=== PATIENT | female | born 1985 | race Hispanic/Latino ===

== ENCOUNTER 2022-11-16 13:37 | Observation (INO) | payer BC ==
[2022-11-16 14:22] LABS: #Eosinphils 0.1 thou/uL (0.0-0.7); #Lymphocytes 2.3 thou/uL (1.20-3.40); #Monocytes 0.8 thou/uL (0.11-0.59); #Neutrophils 7.1 thou/uL (1.40-6.50); %Basophils 0.5 % (0.0-1.0); %Eosinophils 0.6 % (0.0-10.0); %Lymphocytes 22.3 % (21.0-51.0); %Monocytes 7.8 % (0.0-10.0); %Neutrophils 68.9 % (42.0-75.0); Hemoglobin 11.8 g/dL (12.0-16.0); Mean Corpuscular HGB CONC 32.9 g/dL (32.0-36.0); Mean Corpuscular Hemoglobin 31.5 pg (27.0-31.0); Mean Corpuscular Volume 95.8 fl (78.0-98.0); Mean Platelet Volume 8.4 fL (7.4-10.4); Platelet Count 237 10x3/uL (130-400); RBC Distribution Width 12.6 % (11.5-14.5); Red Blood Cell (RBC) Count 3.76 mill/uL (4.20-5.40); White Blood Cell (WBC) Count 10.3 10x3/uL (4.8-10.8)
[2022-11-16 14:32] LABS: Bacteria/HPF 1+ HPF (None Seen); Bilirubin Negative (Negative); Blood, Urine Negative (Negative); Calcium Oxalate Crystals 1+ HPF (None Seen); Glucose, Urine (Dipstick) Normal (Negative); Ketone, Urine Trace mg/dL (Negative); Leukocyte 75 Leu/uL (Negative); Nitrite Negative (Negative); Protein, Urine (Dipstick) 50 mg/dL (Neg-Trace); RBC/HPF 0-3 HPF (0-3); Specific Gravity, Urine 1.031 (1.002-1.036); Squamous Epithelial 21-50 HPF (0-3); pH, Urine 5.5 (5.0-9.0)
[2022-11-16 14:33] LABS: Clarity Cloudy (Clear)
[2022-11-16 14:36] LABS: Pregnancy Test - Urine (BHCG) POSITIVE (Negative); Pregu Control Background? CLEAR/WHITE (CLR/WHITE); Pregu Control Bar Appear? YES (CONTROL BAR); Specific Gravity 1.031 (1.002-1.036)
[2022-11-16 14:54] LABS: ALT (SGPT) 12 U/L (8-55); AST (SGOT) 16 U/L (5-34); Albumin 4.2 g/dL (3.5-5.0); Alkaline Phosphatase 52 U/L (40-110); Anion Gap 14 mmol/L (10-20); BUN (Urea Nitrogen) 19 mg/dL (7.0-18.7); Bilirubin, Total 0.3 mg/dL (0.2-1.2); Calc. Creatinine Clearance 0 mL/min (70-130); Carbon Dioxide 24 mmol/L (22-29); Chloride 104 mmol/L (98-107); Estimated GFR 88; Globulin 2.7 g/dL (2.4-3.5); Glucose 86 mg/dL (70-105); Potassium 3.5 mmol/L (3.5-5.1); Protein, Total 6.9 g/dL (6.0-8.3); Sodium 138 mmol/L (136-145)
[2022-11-16] MEDS ORDERED: Acetaminophen 500 MG TAB ONE (15:04)
[2022-11-16] MEDS ORDERED: FENTANYL 50 MCG/ML 1 ML VIAL ONE ×2 (16:01→18:40)
[2022-11-16] MEDS ORDERED: Ondansetron PF 4 MG/2 ML Vial ONE ×2 (16:01→16:57)
[2022-11-16] MEDS ORDERED: Midazolam HCl 2 mg/2 ml Vial ONE (16:26)
[2022-11-16] MEDS ORDERED: Albumin 5% 0 ML ONE (16:27)
[2022-11-16] MEDS ORDERED: fentaNYL PF 100 MCG/2 ML SYRINGE ONE (16:27)
[2022-11-16] MEDS ORDERED: NEOSTIGMINE 3 MG/3 ML SYR 3 MG/3 ML SYRINGE ONE (16:57)
[2022-11-16] MEDS ORDERED: Succinylcholine Chloride 100 MG/5 ML SYRINGE FS ONE (16:57)
[2022-11-16] MEDS ORDERED: Lidocaine 1% PF 5 ML VIAL ONE (16:57)
[2022-11-16] MEDS ORDERED: PROPOFOL 200 MG/20 ML VIAL ONE (16:57)
[2022-11-16] MEDS ORDERED: Rocuronium Bromide 10 MG/ML (10ML VIAL) ONE (16:57)
[2022-11-16] MEDS ORDERED: PHENYLEPHRINE-NS 100 MCG/ML 10 ML SYRINGE ONE (16:57)
[2022-11-16] MEDS ORDERED: Glycopyrrolate 0.2 MG/ML 5 ML SYRINGE ONE (16:57)
[2022-11-16] MEDS ORDERED: Dexamethasone 20 MG/5 ML VIAL ONE (16:57)
[2022-11-16] MEDS ORDERED: Metoclopramide HCl 10 MG/2 ML VIAL ONE (16:57)
[2022-11-16] MEDS ORDERED: Bupivacaine HCl 0.5%/Epinephrine 1:200,000/PF 30 ml Vial ONE (17:07)
[2022-11-16] MEDS ORDERED: Meperidine HCl/PF 25 MG/ML VIAL ONE (17:58)
[2022-11-16] MEDS ORDERED: Ondansetron PF 4 MG/2 ML Vial IVP PRN (18:16)
[2022-11-16] MEDS ORDERED: Morphine 2 MG/ML VIAL SLOW IVP PRN (18:16)
[2022-11-16] MEDS ORDERED: Promethazine HCl 25 MG/ML VIAL IM PRN ×2 (18:16→18:17)
[2022-11-16] MEDS ORDERED: diphenhydrAMINE 25 MG CAP PO PRN (18:16)
[2022-11-16] MEDS ORDERED: HYDROcodone/Acetaminophen 10/325 mg Tablet PO PRN (18:16)
[2022-11-16] MEDS ORDERED: Ondansetron HCl/PF 4 MG/2 ML Vial IVP PRN (18:17)
[2022-11-16] MEDS ORDERED: Morphine Sulfate 2 MG/ML SYRINGE SLOW IVP PRN (18:17)
[2022-11-16] MEDS ORDERED: Meperidine HCl/PF 25 MG/ML VIAL SLOW IVP PRN (18:17)
[2022-11-16] MEDS ORDERED: Ketorolac Tromethamine 30 MG/ML VIAL IVP PRN (18:17)
[2022-11-16] MEDS ORDERED: HYDROmorphone 2 MG/ML VIAL SLOW IVP PRN (18:17)
[2022-11-16] MEDS ORDERED: Ketorolac Tromethamine 30 MG/ML VIAL ONE (18:39)
[2022-11-16] MEDS: Lactated Ringer's 1,000 ML IV SCH (19:42)
[2022-11-16] MEDS: HYDROcodone/Acetaminophen 10/325 mg Tablet PO PRN (20:36)
[2022-11-16 22:09] VITALS: BMI 24.0
[2022-11-17] MEDS: Lactated Ringer's 1,000 ML IV SCH ×2 (02:23→10:16)
[2022-11-17 04:15] VITALS: BP 92/52
[2022-11-17 07:09] LABS: Mean Corpuscular HGB CONC 33.9 g/dL (32.0-36.0); Mean Corpuscular Volume 94.4 fl (78.0-98.0); Mean Platelet Volume 8.4 fL (7.4-10.4); Platelet Count 185 10x3/uL (130-400); RBC Distribution Width 13.7 % (11.5-14.5); Red Blood Cell (RBC) Count 3.44 mill/uL (4.20-5.40); White Blood Cell (WBC) Count 10.5 10x3/uL (4.8-10.8)
[2022-11-17 08:04] VITALS: TEMP 98
[2022-11-17] MEDS: HYDROcodone/Acetaminophen 10/325 mg Tablet PO PRN (09:56)
== END 2022-11-17 11:59 | disposition home or self-care (01) ==
LOC: ERS 13:37 → SDC 16:54 → SJJU 19:35
PROVIDERS: ADMIT Obstetrics & Gynecology; ATTEND Obstetrics & Gynecology
PROC: 10T24ZZ Resection of Products of Conception, Ectopic, Percutaneous Endoscopic Approach (ICD-10-PCS; principal; 2022-11-16)
DX: O00.101 Right tubal pregnancy without intrauterine pregnancy (principal); K66.1 Hemoperitoneum; Z97.5 Presence of (intrauterine) contraceptive device; Z79.899 Other long term (current) drug therapy
CPT/HCPCS: 36415; 36430; 70450; 80053; 81003; 81015; 81025; 84702; 85025; 85027; 86850; 86900; 86901; 88305; 93005; 94760; 96374; 96375; G0378; J1100; J1885; J2175; J2250; J2272; J2405; J2704; J2765; J3010; J7120; P9016; P9045